=== PATIENT | female | born 1985 | race Caucasian/White ===

== ENCOUNTER 2017-02-14 19:39 | Emergency (ER) | payer BC ==
[~2017-02-14] VITALS: Ht 152.4 cm; Wt 54.1 kg
[2017-02-14 19:43] VITALS: TEMP 36.7; Ht 152.4 cm; Wt 54.1 kg
[2017-02-14] MEDS ORDERED: MULT-506 PO (20:09)
[2017-02-14 20:22] LABS: BASO % 0.4 %; BASO ABS # 0.02 K/uL (0-0.2); COMPLETE YES; EOS % 4.1 %; HEMATOCRIT 36.7 % (37-47); MEAN CELL VOLUME 75.7 fL (80-100); MEAN CORPUSCULAR HEMOGLOBIN 25.6 pg (25-34); MEAN CORPUSCULAR HGB CONC 33.8 g/dl (32-36); MEAN PLATELET VOLUME 12.4 fL (7.4-10.4); NEUT % 48.5 %; PLATELET COUNT 211 K/uL (130-400); RED BLOOD COUNT 4.85 M/uL (4.2-5.4)
[2017-02-14 20:26] LABS: URINE APPEARANCE CLEAR (CLEAR); URINE BILIRUBIN NEG (NEG); URINE COLOR YELLOW; URINE EPITHELIAL CELL AUTO >30 /lpf (0-5); URINE NITRITE NEG (NEG); URINE SPECIFIC GRAVITY 1.026 (1.000-1.030); UROBILINOGEN NEG (NEG); ZZUR CULT IF INDIC CLEAN CATCH YES
[2017-02-14 20:35] LABS: MANUAL MICROSCOPIC REQUIRED? NO; REVIEW REQ? NO
[2017-02-14 20:37] LABS: BUN/CREATININE RATIO 18.5 (10-20); CREATININE 0.81 mg/dl (0.60-1.20); POTASSIUM 3.6 mmol/L (3.5-5.1)
[2017-02-14] MEDS ORDERED: SODIUM CHLORIDE 0.9% 1000ML 1,000 ML IV STA (20:44)
--- NOTE | 2017-02-14 22:13 | DIAGNOSTIC IMAGING REPORT ---
PELVIC ULTRASOUND CLINICAL HISTORY: Midline pain. Right lower quadrant tenderness. COMPARISON STUDY: None TECHNIQUE: Transabdominal and transvaginal sonography of the pelvis was performed. FINDINGS: The uterus measures 6.4 x 8.3 x 4.9 cm. The endometrium measures 1.1 cm in thickness. The right ovary measures 2.9 x 1.2 x 1.5 cm and the left measures 2.9 x 1.5 x 1.3 cm. Color flow is identified within each ovary. A small amount of free fluid is likely physiologic. IMPRESSION: 1. Normal sonographic appearance of the uterus and ovaries. 2. Small amount of fluid within pelvis which is likely physiologic. Electronically signed by: Maverick Velasquez M.D. 02/14/2017 10:12 PM Dictated Date/Time: 02/14/2017 10:10 PM
[2017-02-14 23:09] VITALS: BP 110/70; PULSE 66; O2SAT 99
--- NOTE | 2017-02-15 01:24 | EMERGENCY ROOM VISIT NOTE ---
History Report prepared by Joselo: Mello Sandoval Under the Supervision of: Dr. Matthew Monroe M.D. First contact with patient: 19:54 Chief Complaint: ABDOMINAL PAIN Stated Complaint: STOMACH PAIN History of Present Illness The patient is a 31 year old female who presents to the Emergency Room with complaints of intermittent pain in the umbilical region of her abdomen that she experienced two weeks ago and today. The patient states that the pain feels like a "pulling" sensation, and lasts for about 10 minutes after onset before resolving spontaneously. She states that she was driving in the car when her symptoms began. She denies feeling any protrusions or bulging around the area of the pain. The pain is worsened by laying flat. The patient states that the pain radiates straight down into her groin. She also complains of some intermittent cramping pains in her left lower back. Her last normal menstrual period was 3 weeks ago, which was normal and on schedule. She has not taken any medications for her pain today. The patient denies denies LOC, headache, fevers , chills, diaphoresis, visual changes, neck pain, chest pain, breathing difficulties, nausea, vomiting, vaginal bleeding, vaginal discharge, melena, hematochezia, urinary symptoms, numbness, weakness, lymphadenopathy, rash, or other complaints. Source of History: patient Onset: 2 weeks [employer] Position: abdomen Quality: other ("pulling" ) Timing: intermittent Modifying Factors (Worsening): other (Laying flat) Associated Symptoms: No fevers, No vomiting Review of Systems See HPI for pertinent positives and negatives. A total of ten systems were reviewed and were otherwise negative. Past Medical & Surgical Patient reports no past medical/surgical history Family History FH: heart disease Social History Smoking Status: Never Smoker Marital Status: Housing Status: lives with family, lives with significant other Occupation Status: employed Current/Historical Medications Scheduled Multivitamin (Multivitamin), 1 TAB PO DAILY Allergies Coded Allergies: No Known Allergies (Unverified , 02/14/17) Physical Exam Vital Signs Date Time Temp Pulse Resp B/P Pulse Ox O2 Delivery O2 Flow Rate FiO2 02/14/17 23:09 66 18 110/70 99 Room Air 02/14/17 21:15 68 18 118/76 98 Room Air 02/14/17 19:43 36.7 72 18 121/71 96 Room Air Physical Exam GENERAL: Awake, alert, well-appearing, in no distress HENT: Normocephalic, atraumatic. Oropharynx unremarkable. EYES: Normal conjunctiva. Sclera non-icteric. NECK: Supple. No nuchal rigidity. FROM. No JVD. RESPIRATORY: Clear to auscultation. CARDIAC: Regular rate, normal rhythm. Extremities warm and well perfused. Pulses equal. ABDOMEN: Soft, non-distended. No tenderness to palpation. No rebound or guarding. No masses. RECTAL: Deferred. MUSCULOSKELETAL: Chest examination reveals no tenderness. The back is symmetrical on inspection without obvious abnormality. There is no CVA tenderness to palpation. No joint edema. LOWER EXTREMITIES: Calves are equal size bilaterally and non-tender. No edema. No discoloration. NEURO: Normal sensorium. No sensory or motor deficits noted. SKIN: No rash or jaundice noted. Medical Decision & Procedures ER Provider Diagnostic Interpretation: X ray results as stated below per my interpretation and radiologist interpretation. Other radiology results as stated below per my review and radiologist interpretation PELVIC ULTRASOUND CLINICAL HISTORY: Midline pain. Right lower quadrant tenderness. COMPARISON STUDY: None TECHNIQUE: Transabdominal and transvaginal sonography of the pelvis was performed. FINDINGS: The uterus measures 6.4 x 8.3 x 4.9 cm. The endometrium measures 1.1 cm in thickness. The right ovary measures 2.9 x 1.2 x 1.5 cm and the left measures 2.9 x 1.5 x 1.3 cm. Color flow is identified within each ovary. A small amount of free fluid is likely physiologic. IMPRESSION: 1. Normal sonographic appearance of the uterus and ovaries. 2. Small amount of fluid within pelvis which is likely physiologic. Electronically signed by: Maverick Velasquez M.D. 02/14/2017 10:12 PM Dictated Date/Time: 02/14/2017 10:10 PM Laboratory Results 02/14/17 20:08 Red Blood Count 4.85, Mean Corpuscular Volume 75.7, Mean Corpuscular Hemoglobin 25.6, Mean Corpuscular Hemoglobin Concent 33.8, Mean Platelet Volume 12.4, Neutrophils (%) (Auto) 48.5, Lymphocytes (%) (Auto) 37.0, Monocytes (%) (Auto) 10.0, Eosinophils (%) (Auto) 4.1, Basophils (%) (Auto) 0.4, Neutrophils # (Auto ) 2.23, Lymphocytes # (Auto) 1.70, Monocytes # (Auto) 0.46, Eosinophils # (Auto ) 0.19, Basophils # (Auto) 0.02 02/14/17 20:08 Test 02/14/17 20:00 02/14/17 20:08 Urine Color YELLOW Urine Appearance CLEAR (CLEAR) Urine pH 6.0 (4.5-7.5) Urine Specific [place] 1.026 (1.000-1.030) Urine Protein NEG (NEG) Urine Glucose (UA) NEG (NEG) Urine Ketones NEG (NEG) Urine Occult Blood 1+ (NEG) Urine Nitrite NEG (NEG) Urine Bilirubin NEG (NEG) Urine Urobilinogen NEG (NEG) Urine Leukocyte Esterase TRACE (NEG) Urine WBC (Auto) 1-5 /hpf (0-5) Urine RBC (Auto) 0-4 /hpf (0-4) Urine Hyaline Casts (Auto) 1-5 /lpf (0-5) Urine Epithelial Cells (Auto) >30 /lpf (0-5) Urine Bacteria (Auto) 1+ (NEG) Urine Test NEG (NEG) White Blood Count 4.60 K/uL (4.8-10.8) Red Blood Count 4.85 M/uL (4.2-5.4) Hemoglobin 12.4 g/dL (12.0-16.0) Hematocrit 36.7 % (37-47) Mean Corpuscular Volume 75.7 fL (80-100) Mean Corpuscular Hemoglobin 25.6 pg (25-34) Mean Corpuscular Hemoglobin Concent 33.8 g/dl (32-36) Platelet Count 211 K/uL (130-400) Mean Platelet Volume 12.4 fL (7.4-10.4) Neutrophils (%) (Auto) 48.5 % Lymphocytes (%) (Auto) 37.0 % Monocytes (%) (Auto) 10.0 % Eosinophils (%) (Auto) 4.1 % Basophils (%) (Auto) 0.4 % Neutrophils # (Auto) 2.23 K/uL (1.4-6.5) Lymphocytes # (Auto) 1.70 K/uL (1.2-3.4) Monocytes # (Auto) 0.46 K/uL (0.11-0.59) Eosinophils # (Auto) 0.19 K/uL (0-0.5) Basophils # (Auto) 0.02 K/uL (0-0.2) RDW Standard Deviation 38.2 fL (36.4-46.3) RDW Coefficient of Variation 13.8 % (11.5-14.5) Immature Granulocyte % (Auto) 0.0 % Immature Granulocyte # (Auto) 0.00 K/uL (0.00-0.02) Anion Gap 7.0 mmol/L (3-11) Est Creatinine Clear Calc Drug Dose 72.3 ml/min Estimated GFR () 112.2 Estimated GFR (Non- 96.8 BUN/Creatinine Ratio 18.5 (10-20) Calcium Level 9.0 mg/dl (8.5-10.1) Total Bilirubin 0.6 mg/dl (0.2-1) Direct Bilirubin 0.1 mg/dl (0-0.2) Aspartate Amino Transf (AST/SGOT) 14 U/L (15-37) Alanine Aminotransferase (ALT/SGPT) 20 U/L (12-78) Alkaline Phosphatase 58 U/L (45-117) Total Protein 8.0 gm/dl (6.4-8.2) Albumin 4.2 gm/dl (3.4-5.0) Lipase 206 U/L (73-393) Laboratory results reviewed by me Medications Administered Medications (Trade) Dose Ordered Sig/Fitz Route Start Time Stop Time Status Last Admin Dose Admin Sodium Chloride (Nss 1000ml) 1,000 ml @ 999 mls/hr Q1H1M STAT IV 02/14/17 20:44 02/14/17 21:44 DC 02/14/17 20:44 999 MLS/HR ED Course 2022: The patient was evaluated in room B2. A complete history and physical exam was performed. 2043: Ordered Sodium Chloride 1000 mL @ 999 mL/hr IV. 2321: I reevaluated the patient, she is feeling well. I discussed conservative management and discharge instructions: She verbalized understanding and agreement. The patient is ready for discharge. Medical Decision Triage Nursing notes reviewed. The patient's presentation and history were concerning for intermittent abdominal pain. Etiologies such as nonspecific abdominal pain, ovarian cyst, , appendicitis, diverticulitis, obstruction, inflammatory bowel disease, renal colic, PUD, biliary pathology, pancreatitis, mesenteric ischemia, aortic pathology, infections, genitourinary, UTI, perforated viscus, as well as others were entertained. The patient has had abdominal pain 2 weeks ago and it was intermittent. The patient had this pain recur but it resolved. She had very minimal tenderness in the right lower quadrant only with palpation. She did not feel it without palpation. The patient had an unremarkable CBC, chemistry panel, LFTs, lipase, urinalysis and negative test. She underwent ultrasound imaging. No abnormalities were noted. The patient was reevaluated and felt well. She had no complaints of any pain. The exact etiology of her fleeting abdominal pain is not obvious. Nothing is suggested on blood work. She had no significant symptoms on examination. I discussed conservative management with her and she felt very comfortable. Return instructions were outlined completely. I emphasized the need for follow-up closely in the office. If she worsens in any way she will return. I gave my usual and customary discussion regarding this issue. By the evaluation outlined above other emergent etiologies such as those listed in the differential, as well as others, were deemed relatively unlikely. The patient was informed about the findings as listed above. All questions were answered and she was pleased with the treatment. Return instructions were outlined and the patient was discharged in stable condition. The patient was referred to her PCP for follow-up this week for a recheck of the current condition. The chart was completed utilizing [employer] Speech voice recognition software. Grammatical errors, random word insertions, pronoun errors, and incomplete sentences are an occasional consequence of this system due to software limitations, ambient noise, and hardware issues. Any formal questions or concerns about the content, text, or information contained within the body of this dictation should be directly addressed to the physician for clarification. Impression Primary Impression: Lower abdominal pain Scribe Attestation The scribe's documentation has been prepared under my direction and personally reviewed by me in its entirety. I confirm that the note above accurately reflects all work, treatment, procedures, and medical decision making performed by me. Departure Information Dispostion Home / Self-Care Referrals Roel Rothman M.D. (PCP) Forms Call Back Authorization, HOME CARE DOCUMENTATION FORM, IMPORTANT VISIT INFORMATION Patient Instructions My [facility] Additional Instructions ABDOMINAL PAIN INSTRUCTIONS: Ibuprofen(Motrin, Advil) may be used for fever or pain. Use 600mg every six hours as needed. Take with food. Avoid using more than 2400mg in a 24 hour period. Do not use 2400mg per day for more than three consecutive days without physician direction. Prolonged inappropriate use can lead to stomach upset or ulcers. (AND/OR) Acetaminophen(Tylenol) may be used for fever or pain. Use 1000mg every six hours as needed. Avoid using more than 4000mg in a 24 hour period. Rest and drink plenty of fluids as tolerated. Slow sips of water or sports drinks are recommended instead of large amounts all at once. Continue current medications. Return to the ER immediately for worsening or persistent abdominal pain, vomiting, fevers, chest pains, difficulty breathing, black or bloody stools, worsening of your condition, or as needed. Follow up with your primary physician in 2-3 days for a recheck of your current condition.
== END 2017-02-14 23:32 | disposition home or self-care (01) ==
LOC: C.EDB 19:40
DX: R10.30 Lower abdominal pain, unspecified (principal); M54.5 Low back pain

== ENCOUNTER 2017-04-15 17:17 | Emergency (ER) | payer BC ==
[~2017-04-15 17:17] MED LIST: MULT-506 PO
[2017-04-15 17:38] VITALS: TEMP 36.7; Ht 160 cm
[2017-04-15] MEDS ORDERED: ONDANSETRON INJ 2 MG/ML 2 ML VIAL IV STA (17:54)
[2017-04-15] MEDS ORDERED: SODIUM CHLORIDE 0.9% 1000ML 1,000 ML IV STA (17:54)
[2017-04-15 18:13] LABS: URINE APPEARANCE CLOUDY (CLEAR); URINE BILIRUBIN NEG (NEG); URINE COLOR YELLOW; URINE EPITHELIAL CELL AUTO >30 /lpf (0-5); URINE NITRITE NEG (NEG); URINE PH 7.5 (4.5-7.5); URINE SPECIFIC GRAVITY 1.022 (1.000-1.030); UROBILINOGEN NEG (NEG); ZZUR CULT IF INDIC CLEAN CATCH YES
[2017-04-15 18:21] LABS: MANUAL MICROSCOPIC REQUIRED? NO; REVIEW REQ? NO
[2017-04-15 18:22] LABS: BASO % 0.6 %; BASO ABS # 0.03 K/uL (0-0.2); COMPLETE YES; EOS % 2.5 %; HEMATOCRIT 35.9 % (37-47); LYMPH % 32.1 %; LYMPH ABS # 1.68 K/uL (1.2-3.4); MEAN CELL VOLUME 76.9 fL (80-100); MEAN CORPUSCULAR HEMOGLOBIN 25.1 pg (25-34); MEAN CORPUSCULAR HGB CONC 32.6 g/dl (32-36); MEAN PLATELET VOLUME 11.8 fL (7.4-10.4); MONO % 8.2 %; NEUT % 56.6 %; PLATELET COUNT 230 K/uL (130-400); RED BLOOD COUNT 4.67 M/uL (4.2-5.4); WHITE BLOOD COUNT 5.23 K/uL (4.8-10.8)
[2017-04-15] MEDS ORDERED: OPTIRAY 320 IV PRN (18:30)
[2017-04-15 18:54] LABS: ALT/SGPT 20 U/L (12-78); AST/SGOT 12 U/L (15-37); BLOOD UREA NITROGEN 12 mg/dl (7-18); BUN/CREATININE RATIO 16.5 (10-20); CALCIUM 9.2 mg/dl (8.5-10.1); CARBON DIOXIDE 29 mmol/L (21-32); CHLORIDE 106 mmol/L (98-107); CREATININE 0.75 mg/dl (0.60-1.20); GLUCOSE 80 mg/dl (70-99); SODIUM 140 mmol/L (136-145)
[2017-04-15 18:57] LABS: ALB/GLOB RATIO 1.1 (0.9-2); ALKALINE PHOSPHATASE 58 U/L (45-117)
--- NOTE | 2017-04-15 21:00 | DIAGNOSTIC IMAGING REPORT ---
CT ABD/PELVIS IV AND ORAL CONT CLINICAL HISTORY: Right lower quadrant and periumbilical pain. COMPARISON STUDY: None. TECHNIQUE: Following the IV administration of 94 mL of Optiray-320, CT scan of the abdomen and pelvis was performed from the lung bases to the proximal femurs. Images are reviewed in the axial, sagittal, and coronal planes. IV contrast was administered without complication. CT DOSE: 314.76 mGycm FINDINGS: Lower chest: There are minimal basilar atelectatic changes. Liver: The contrast-enhanced liver is normal in size, contour, and attenuation. There is no intrahepatic biliary ductal dilatation. The hepatic veins and portal veins are patent. Gallbladder: Unremarkable. Spleen: Normal in size and attenuation. Pancreas: Unremarkable. Adrenal glands: Unremarkable. Kidneys: There is symmetric renal cortical enhancement. The kidneys are normal in size without hydronephrosis. Bowel: There are no transition zones indicate bowel obstruction. There is no evidence of acute diverticulitis. The visualized portions of the appendix are normal. Peritoneum: There is no intraperitoneal free air or abdominal ascites. Vasculature: The abdominal aorta is normal in course and caliber. Adenopathy: None. Pelvic viscera: The bladder, and pelvic viscera are unremarkable. Skeletal structures: No destructive osseous lesions are seen. IMPRESSION: 1. No evidence of bowel obstruction. No evidence of free air 2. No evidence of acute appendicitis. No evidence of acute diverticulitis. 3. No acute inflammatory changes Electronically signed by: Jayce Velázquez M.D. 04/15/2017 8:59 PM Dictated Date/Time: 04/15/2017 8:54 PM
--- NOTE | 2017-04-15 21:39 | EMERGENCY ROOM VISIT NOTE ---
History First contact with patient: 17:37 Chief Complaint: ABDOMINAL PAIN Stated Complaint: EXTREME ABD PAIN BEHIND BELLY BUTTON Nursing Triage Summary: Pt c/o pain near the umbilicus, states she was driving for work and feels that the seat-belt pushed down on her abd. States she had the pain approx one month ago, presented to the ER, but the symptom resolved when she was here. Denies n/v/d History of Present Illness The patient is a 31 year old female who presents to the Emergency Room with complaints of abdominal pain. The patient states that this morning, she developed pain in the middle of her abdomen. She reports she was driving her car when she developed the pain. She states the pain is located behind her umbilicus. It radiates downward into her pelvis. She states the pain increased when the seatbelt was pushing on her abdomen. She describes it as a burning, tearing pain and rates her discomfort a 6/10. She states that her pain seems to improve, but then worsened again. She states the pain is worse when she is bending over. She was here 1.5 months ago for similar symptoms but states that the pain resolved during her stay. She denies any nausea, vomiting , fevers or changes in bowel movements. Review of Systems A complete 10 point review of systems was reviewed with the patient with pertinent positives and negatives as per history of present illness. All else were negative. Family History FH: heart disease Social History Smoking Status: Former Smoker Marital Status: Housing Status: lives with family, lives with significant other Occupation Status: employed Current/Historical Medications No Active Prescriptions or Reported Meds Allergies Coded Allergies: No Known Allergies (Unverified , 02/14/17) Physical Exam Vital Signs Date Time Temp Pulse Resp B/P (MAP) Pulse Ox O2 Delivery O2 Flow Rate FiO2 04/15/17 21:47 60 18 110/69 100 04/15/17 20:47 62 20 116/75 100 Room Air 04/15/17 18:52 52 20 111/76 98 Room Air 04/15/17 17:38 36.7 80 16 107/87 95 Room Air Physical Exam VITALS: Vitals are noted on the nurse's note and reviewed by myself. Vital signs stable. GENERAL: This is a 31-year-old female, in no acute distress, nondiaphoretic, well-developed well-nourished. SKIN: Capillary reflex less than 2 seconds. HEENT: Normocephalic. PERRLA. EOMI. Nares patent. Mucous membranes moist. Neck is supple without nuchal rigidity. HEART: Regular rate and rhythm without murmurs gallops or rubs. LUNGS: Clear to auscultation bilaterally without wheezes, rales or rhonchi. ABDOMEN: Positive bowel sounds x 4. Soft, mild tenderness over the periumbilical region. No guarding or rebound tenderness. NEURO: Patient was alert and oriented to person place and time. Medical Decision & Procedures ER Provider Diagnostic Interpretation: CT ABD/PELVIS IV AND ORAL CONT FINDINGS: Lower chest: There are minimal basilar atelectatic changes. Liver: The contrast-enhanced liver is normal in size, contour, and attenuation. There is no intrahepatic biliary ductal dilatation. The hepatic veins and portal veins are patent. Gallbladder: Unremarkable. Spleen: Normal in size and attenuation. Pancreas: Unremarkable. Adrenal glands: Unremarkable. Kidneys: There is symmetric renal cortical enhancement. The kidneys are normal in size without hydronephrosis. Bowel: There are no transition zones indicate bowel obstruction. There is no evidence of acute diverticulitis. The visualized portions of the appendix are normal. Peritoneum: There is no intraperitoneal free air or abdominal ascites. Vasculature: The abdominal aorta is normal in course and caliber. Adenopathy: None. Pelvic viscera: The bladder, and pelvic viscera are unremarkable. Skeletal structures: No destructive osseous lesions are seen. IMPRESSION: 1. No evidence of bowel obstruction. No evidence of free air 2. No evidence of acute appendicitis. No evidence of acute diverticulitis. 3. No acute inflammatory changes Laboratory Results 04/15/17 18:10 Red Blood Count 4.67, Mean Corpuscular Volume 76.9, Mean Corpuscular Hemoglobin 25.1, Mean Corpuscular Hemoglobin Concent 32.6, Mean Platelet Volume 11.8, Neutrophils (%) (Auto) 56.6, Lymphocytes (%) (Auto) 32.1, Monocytes (%) (Auto) 8.2, Eosinophils (%) (Auto) 2.5, Basophils (%) (Auto) 0.6, Neutrophils # (Auto) 2.96, Lymphocytes # (Auto) 1.68, Monocytes # (Auto) 0.43, Eosinophils # (Auto) 0.13, Basophils # (Auto) 0.03 04/15/17 18:10 Test 04/15/17 17:55 04/15/17 18:10 Urine Color YELLOW Urine Appearance CLOUDY (CLEAR) Urine pH 7.5 (4.5-7.5) Urine Specific [place] 1.022 (1.000-1.030) Urine Protein NEG (NEG) Urine Glucose (UA) NEG (NEG) Urine Ketones NEG (NEG) Urine Occult Blood NEG (NEG) Urine Nitrite NEG (NEG) Urine Bilirubin NEG (NEG) Urine Urobilinogen NEG (NEG) Urine Leukocyte Esterase TRACE (NEG) Urine WBC (Auto) 5-10 /hpf (0-5) Urine RBC (Auto) 0-4 /hpf (0-4) Urine Hyaline Casts (Auto) 1-5 /lpf (0-5) Urine Epithelial Cells (Auto) >30 /lpf (0-5) Urine Bacteria (Auto) 1+ (NEG) Urine Test NEG (NEG) White Blood Count 5.23 K/uL (4.8-10.8) Red Blood Count 4.67 M/uL (4.2-5.4) Hemoglobin 11.7 g/dL (12.0-16.0) Hematocrit 35.9 % (37-47) Mean Corpuscular Volume 76.9 fL (80-100) Mean Corpuscular Hemoglobin 25.1 pg (25-34) Mean Corpuscular Hemoglobin Concent 32.6 g/dl (32-36) Platelet Count 230 K/uL (130-400) Mean Platelet Volume 11.8 fL (7.4-10.4) Neutrophils (%) (Auto) 56.6 % Lymphocytes (%) (Auto) 32.1 % Monocytes (%) (Auto) 8.2 % Eosinophils (%) (Auto) 2.5 % Basophils (%) (Auto) 0.6 % Neutrophils # (Auto) 2.96 K/uL (1.4-6.5) Lymphocytes # (Auto) 1.68 K/uL (1.2-3.4) Monocytes # (Auto) 0.43 K/uL (0.11-0.59) Eosinophils # (Auto) 0.13 K/uL (0-0.5) Basophils # (Auto) 0.03 K/uL (0-0.2) RDW Standard Deviation 41.8 fL (36.4-46.3) RDW Coefficient of Variation 14.8 % (11.5-14.5) Immature Granulocyte % (Auto) 0.0 % Immature Granulocyte # (Auto) 0.00 K/uL (0.00-0.02) Anion Gap 5.0 mmol/L (3-11) Estimated GFR () 123.1 Estimated GFR (Non- 106.2 BUN/Creatinine Ratio 16.5 (10-20) Calcium Level 9.2 mg/dl (8.5-10.1) Total Bilirubin 0.8 mg/dl (0.2-1) Aspartate Amino Transf (AST/SGOT) 12 U/L (15-37) Alanine Aminotransferase (ALT/SGPT) 20 U/L (12-78) Alkaline Phosphatase 58 U/L (45-117) Total Protein 7.5 gm/dl (6.4-8.2) Albumin 3.9 gm/dl (3.4-5.0) Globulin 3.6 gm/dl (2.5-4.0) Albumin/Globulin Ratio 1.1 (0.9-2) Lipase 166 U/L (73-393) Date/Time Source Procedure Growth Status 04/15/17 17:55 Urine , Clean Catch Urine Culture - Final THREE TYPES OF ORGANSIMS PRESENT, ALL... Complete Medications Administered Medications (Trade) Dose Ordered Sig/Fitz Route Start Time Stop Time Status Last Admin Dose Admin Sodium Chloride 1,000 ml @ 999 mls/hr Q1H1M STAT IV 04/15/17 17:54 04/15/17 18:54 DC 04/15/17 18:16 999 MLS/HR Ondansetron HCl (Zofran Inj) 4 mg NOW STAT IV 04/15/17 17:54 04/15/17 17:56 DC 04/15/17 18:16 4 MG ED Course The patient was evaluated as above. Labs were drawn and IV access was obtained. She declined analgesics. Patient was reevaluated and findings were discussed. Discharge instructions were reviewed with the patient. The patient verbalized understanding of my assessment and treatment plan and was discharged home in good condition. Medical Decision Differential diagnosis includes appendicitis, ovarian cyst, ovarian torsion, ectopic , UTI, gastritis, IBS, IBD, among others. The patient is a 31-year-old female who presents today complaining of periumbilical abdominal pain. The patient was seen here one month ago for similar symptoms but states that her symptoms resolved at that time. Records were reviewed. At that time, the patient had a pelvic ultrasound which was normal. Labs today revealed no leukocytosis, anemia, or concerning electrolyte abnormality. Urinalysis was not suggestive of infection. Urine was negative. CT of the abdomen and pelvis with both IV and oral contrast was performed and read by radiology with no acute findings. The patient was instructed to follow up with her primary care provider regarding her abdominal pain. Based on the patient's presentation and work up, I feel the patient is stable for outpatient treatment. The patient was educated to return to the emergency department for any worsening of their current condition or new/concerning symptoms. She will follow up with her PCP. Impression Primary Impression: Periumbilical abdominal pain Departure Information Dispostion Home / Self-Care Condition GOOD Prescriptions No Active Prescriptions or Reported Meds Referrals Roel Rothman M.D. (PCP) Patient Instructions My [facility] Additional Instructions You have been treated in the Emergency Department your Abdominal Pain. Laboratory results and imaging studies have ruled out any emergent causes for your abdominal pain which would warrant admission or surgery. For pain control, you can use the following [id number] medicines (if >12 yo): - Regular strength (325mg/tab) Tylenol (acetaminophen) 2 tabs every 4-6 hours as needed. Do not exceed 12 tablets in a 24 hour period. Avoid taking more than 4 grams (4000 mg) of Tylenol per day. This includes any other sources of acetaminophen you may take on a regular basis. - Regular strength (200 mg/tab) Advil (ibuprofen) 1-2 tabs every 4-6 hours as needed. Do not exceed a dose of 3200 mg per day. Drink plenty of water and stay well hydrated. As with any trip to the Emergency Department, you should follow-up with your Primary Care Provider from today's visit. Return to the emergency department with any worsening or new/concerning symptoms.
[2017-04-15 21:47] VITALS: BP 110/69; PULSE 60; O2SAT 100
== END 2017-04-15 21:49 | disposition home or self-care (01) ==
LOC: C.EDB 17:18
DX: R10.33 Periumbilical pain (principal); Z87.891 Personal history of nicotine dependence